=== PATIENT | female | born 1955 | race Caucasian/White ===

== ENCOUNTER 2016-10-30 19:52 | Emergency (ER) | payer MEDICARE, SELFPAY ==
[~2016-10-30 19:52] MED LIST: ADVAIR 100-501 EACH IH; ADVAIR 10028 BLISTER INH; ALBUTEROL17 GM INH; ALIGN4 M1 PO; ALLERGY RELIEF4 MG PO; AMBIEN10 M1 PO; AMBIEN5 MG PO; AMRIX15 MG; ANTIVERT25 MG; ANTIVERT25 MG PO; ASPIR-LOW81 MG PO; ASPIRIN EC LOW81 MG PO; ASPIRIN ENTERI325 MG PO; ASPIRIN LOW STR81 MG PO; ASPIRIN81 MG; ATARAX50 MG PO; ATIVAN1 M1 PO; ATIVAN1 MG PO; ATIVAN2 M1 PO; ATIVAN2 MG PO; AZITHROMYCIN250 M1 PO; BABY ASPIRIN81 MG PO; BENTYL10 MG PO; BENTYL20 MG PO; BENZONATATE200 MG PO; BENZTROPINE MESY2 MG PO; BETHANECHOL CHL50 MG PO; BIAXIN PO; BIAXIN XL500 MG PO; BUSPIRONE HCL15 M2 PO; CARAFATE1 G PO; CARAFATE1 G2 PO; CATAFLAM50 MG PO; CENESTIN0.9 MG; CHLORPHENIRAMINE4 MG PO; CIPRO250 MG; CIPRO250 MG PO; CIPROFLOXACIN500 M2 PO; CITRACAL + BON1 EACH PO; CITRACAL + D CA1 TAB; CITRACAL200 MG PO; CLARITHROMYCIN500 MG PO; CLOBETASOL 0.0560 GM TP; CLONAZEPAM0.125 MG/T; CLONAZEPAM0.5 MG PO; CLONAZEPAM1 MG; CLONAZEPAM1 MG PO; CLONAZEPAM2 MG; COGENTIN1 MG/TA1 PO; COUGH MEDICINE PO; CULTURELLE1 CA1 PO; CULTURELLE1 CAP PO; CULTURELLE1 EAC1 PO; DARVOCET A500 T1 TAB; DARVOCET-N 1001 TAB; DARVOCET-N 1001 TAB PO; DELTASONE10 MG PO; DEXAMETHASONE TP; DIAZEPAM5 M2 PO; DIFLUCAN100 MG PO; DOXYCYCLINE HY100 MG PO; ESTRACE42.5 GM VG; ESTRADIOL0.5 M1 PO; ESTRADIOL1 MG PO; ESTROGEN; ETODOLAC; ETODOLAC400 MG; EXCEDRIN MIGRAI1 TAB; FLEXERIL10 MG; FLEXERIL10 MG PO; FLOMAX0.4 MG PO; FLOVENT HFA10.6 GM IH; FOLIC ACID1 M1 PO; GABAPENTIN100 MG PO; GABAPENTIN300 MG PO; H; H PO; HALDOL PO; HALDOL1 MG/TA1 PO; HALOPERIDOL1 M1 PO; HYDROXYZINE HCL50 M1 PO; HYDROXYZINE HCL50 MG PO; IBU-200200 MG; IMITREX100 MG; IMITREX100 MG PO; IMITREX50 MG; IMODIUM2 MG; IMODIUM2 MG PO; INHALER; IRON1 TA1 PO; IRON325 ( 65 ) PO; IRON325 M1 PO; K-DUR10 ME1 PO; K-DUR20 MEQ PO; KEFLEX500 MG PO; KEPPRA1000 MG PO; KEPPRA500 MG PO; KEPPRA750 MG; KETOPROFEN50 MG PO; KETOROLAC30 MG/1 M1 IM; KLONOPIN0.5 MG PO; KLONOPIN1 MG; KLONOPIN1 MG PO; KLONOPIN2 MG; Ketorolac IM; LAMOTRIGINE100 M2 PO; LEVAQUIN250 MG PO; LEVAQUIN500 MG PO; LEVAQUIN750 MG PO; LEVOTHYROXINE75 MC3 PO; LEXAPRO10 M1 PO; LEXAPRO10 M2 PO; LEXAPRO10 MG; LIDODERM30 EA; LIDODERM30 EA TP; LODINE400 MG; LORTAB 7.5/5001 TAB PO; LYRICA25 MG; LYRICA75 MG PO; MACROBID 100 M100 M1 PO; MACROBID 100 M100 MG PO; MACROBID100 MG/CA1 PO; MACROBID100 MG/CAP PO; MAXALT10 MG; MIRALAX17 GM PO; MORPHINE SULFAT1; MOTRIN600 MG PO; MOTRIN800 MG PO; MUCINEX600 MG PO; MYCELEX10 MG; NAPROSYN250 MG PO; NAPROXYN PO; NEURONTIN100 MG PO; NORCO 5/325 TAB1 TAB PO; NORCO 5/3251 TAB PO; NYSTATIN60 ML; NYSTATIN60 ML PO; OMEPRAZOLE20 M1 PO; OMEPRAZOLE20 M2 PO; OMEPRAZOLE20 M3 PO; OMEPRAZOLE20 MG PO; ONDANSETRON ODT4 M1 PO; ONDANSETRON ODT4 MG PO; OXYCODONE-ACET1 EAC3 PO; PANTOPRAZOLE SO40 M3 PO; PAROXETINE HCL20 M2 PO; PAROXETINE HCL20 MG PO; PAROXETINE HCL40 M1 PO; PAROXETINE HCL40 MG PO; PAXIL20 MG PO; PAXIL40 MG PO; PEPTO-BISM262 MG/15 PO; PERCOCET 5/3251 TAB PO; PERCOCET 5MG/AP1 TA1 PO; PHENERGAN12.5 MG PO; PHENERGAN25 M1 PO; POTASSIUM CHLO20 ME3 PO; POTASSIUM CHLO20 MEQ PO; PREDNISONE20 MG PO; PREVACID15 MG; PREVALITE PAC4 G/PKT PO; PRILOSEC20 MG PO; PROAMATINE2.5 MG; PROSED/DS TABLE1 TA PO; PROTONIX40 M1 PO; PROVENTIL17 GM IH; PYRIDIUM; PYRIDIUM100 MG PO; PYRIDIUM200 MG; PYRIDIUM200 MG PO; QUESTRAN LIGH4 G/PKT PO; ROBAXIN500 MG; SIMVASTATIN10 MG PO; SKELAXIN800 MG PO; SOMA; SOMA COMPOUND1 UDTAB; SOMA350 MG; TESSALON PEARLS; TESSALON PERLE100 MG PO; TESSALON PO; TESSALON200 MG PO; TORADOL IM; TORADOL10 MG IM; TRAMADOL HCL50 MG PO; TRIAMCINOLONE A15 GM TP; TUSSIN10 MG/5 ML PO; TYLENOL #31 TA1 PO; TYLENOL325 MG PO; TYLENOL500 MG PO; ULTRAM50 MG PO; URECHOLINE50 MG PO; URISPAS; URISPAS100 MG; VALIUM2 MG PO; VALPROIC ACID250 MG; VERAPAMIL ER240 M2 PO; VERAPAMIL HCL120 PO; VERAPAMIL HCL240 M PO; VERAPAMIL PO; VERAPAMIL240 MG/TA1 PO; VISTARIL50 MG; VISTARIL50 MG PO; VITAMIN B12; VITAMIN B12 PO; VITAMIN B121000 MCG PO; VITAMIN D35000 UNI3 PO; VITAMIN D5000 UNIT PO; VITAMIN D50000 UNIT PO; VOLTAREN GEL 1100 GM TOP; WAL-DRYL25 MG; ZANAFLEX4 MG PO; ZITHROMAX250 MG PO; ZITHROMAX250MG Z-PAK PO; ZITHROMAX500 M1 PO; ZOCOR10 M1 PO; ZOCOR10 MG PO; ZOFRAN ODT4 MG/UDTAB PO; ZOFRAN ODT8 MG/TAB PO; ZOFRAN4 M1 PO; ZOFRAN4 MG PO; ZOMIG2.5 MG; ZYVOX600 MG PO; [UNRECOGNIZED DRUG - OTHER]; [UNRECOGNIZED DRUG - OTHER]; [UNRECOGNIZED DRUG - OTHER] CH; [UNRECOGNIZED DRUG - OTHER] IM; [UNRECOGNIZED DRUG - OTHER] PO; [UNRECOGNIZED DRUG - OTHER] PO; [UNRECOGNIZED DRUG - OTHER] PO; [UNRECOGNIZED DRUG - OTHER] PO; [UNRECOGNIZED DRUG - REMARK]
== END 2016-10-30 22:55 ==
LOC: EDMED 19:52
DX: G89.18 Other acute postprocedural pain (principal); M25.562 Pain in left knee; E78.00 Pure hypercholesterolemia, unspecified; E03.9 Hypothyroidism, unspecified; K21.9 Gastro-esophageal reflux disease without esophagitis; Z96.652 Presence of left artificial knee joint
CPT/HCPCS: J2270